=== PATIENT | male | born 1975 | race Caucasian/White ===

== ENCOUNTER 2019-09-17 07:41 | Day surgery (SDC) | payer OTHER, BC ==
[~2019-09-17] VITALS: Ht 180.3 cm; Wt 95.5 kg
[~2019-09-17 07:41] MED LIST: AMOCLA875 PO; CRUTCH4 USE; HYDACE5 PO; HYDR1TAB94 PO; IBUP400 PO; NAPR500 PO
--- NOTE | 2019-09-17 09:10 | NUR ---
Ambulatory in Day Surgery Surgical site prepped with 2% Chlorhexidine cloth wipe. History, Chart, Medications and Allergies reviewed before start of procedure.Lungs clear T/O to Auscultation. Patient confirms NPO status and agrees with scheduled surgery. Patient States Post-Procedure ride home has been arranged.WEDDING RING REMOVED AND GIVEN TO . VSS
--- NOTE | 2019-09-17 09:14 | NUR ---
PT C/O OF NAUSEA AND LIGHT HEADNESS IMMEDIATELY FOLLOWING IV INSERTION. PT LAID FLAT AND COOL AIR APPLIED. PT STATED NAUSEA RESOLVED.
--- NOTE | 2019-09-17 14:18 | NUR ---
Patient up to Ambulate STAND BY ASSIST. Gait steady. Discharge instructions reviewed with patient. Patient verbalizes understanding. Copy given to patient to take home. DRESSING LEFT GROIN CDI. Discharged via wheelchair to private car for ride home WITH SPOUSE.
--- NOTE | 2019-09-18 09:41 | NUR ---
09/18/19 0941 Maye Espino VERIFICATIONS: EDIT CHART.
== END 2019-09-17 23:03 | disposition home or self-care (01) ==
LOC: ORSCMMR 07:41 → ORD 09:30 → ORSCMMR 09:30
PROVIDERS: Surgery
PROC: 0YU60JZ Supplement Left Inguinal Region with Synthetic Substitute, Open Approach (ICD-10-PCS; principal; 2019-09-17 09:30)
DX: K40.90 Unilateral inguinal hernia, without obstruction or gangrene, not specified as recurrent (principal)
CPT/HCPCS: A9270-GY; C1781; J0690; J1100; J1885; J2250; J2405; J2704; J3010; J7120

== ENCOUNTER 2024-03-24 15:31 | Emergency (ER) | payer OTHER ==
[~2024-03-24] VITALS: Ht 177.8 cm; Wt 95.2 kg
[2024-03-24] MEDS ORDERED: Ondansetron HCl 2 MG / ML 2ML Vial IV ONE (16:50)
[2024-03-24] MEDS ORDERED: HYDROmorphone HCl/Pf 1MG SYR IV ONE ×2 (16:50→20:00)
[2024-03-24] MEDS ORDERED: Morphine Sulfate 4 MG/1 ML Injection IV ONE ×2 (17:00→17:20)
[2024-03-24] MEDS ORDERED: Propofol 10mg/ml 20 ml Vial (Procedural) IV SCH (18:50)
[2024-03-24] MEDS ORDERED: NS 1,000 ML IV ONE (20:34)
[2024-03-24] MEDS ORDERED: RX Prepack 6 Tabs Oxycodone 5mg UD ONE (21:10)
[2024-03-24] MEDS ORDERED: Percocet 5-3251 EACH PO (21:12)
[2024-03-24 21:28] VITALS: BP 125/91
== END 2024-03-24 22:27 | disposition home or self-care (01) ==
LOC: ER 15:31
DX: S52.572A Other intraarticular fracture of lower end of left radius, initial encounter for closed fracture (principal); S42.352A Displaced comminuted fracture of shaft of humerus, left arm, initial encounter for closed fracture; W17.89XA Other fall from one level to another, initial encounter
CPT/HCPCS: 24505; 25605; 73060; 73090; 73200; 76377; 96361-59; 96374-59; 96375-59; 96376-59; 99152; 99153; 99285-25; A9270; J1170; J2270; J2405; J2704; J7030

== ENCOUNTER 2024-04-02 09:31 | Day surgery (SDC) | payer OTHER ==
[~2024-04-02] VITALS: Ht 180.3 cm; Wt 92.9 kg
[~2024-04-02 09:31] MED LIST changes: +Dexamethasone Sod Phos 10 MG/ML 1ML VIAL ONE; +EPINEPhrine HCl 1 MG/ML 1ML Amp ONE; +FentaNYL Citrate 50 MCG/ML 2 ML Injection ONE; +Lidocaine HCl 4% 5 ML SDA ONE; +Midazolam HCl 1MG / ML 2ML Vial ONE; +Ondansetron HCl 2 MG / ML 2ML Vial ONE; +Percocet 5-3251 EACH PO; +Rocuronium Bromide 10 MG/ML 5ML Injection IV ONE; +Ropivacaine 0.5% HCL/PF 5 MG/ML 30ML Vial ONE; +propofoL 20 ML IV ONE
[2024-04-02] MEDS ORDERED: HYDROCODONE-AC1 EA19 PO (09:52)
[2024-04-02] MEDS ORDERED: OMEP20ER PO (09:52)
--- NOTE | 2024-04-02 10:00 | NUR ---
04/02/24 Janae Jean LEXX AT BEDSIDE
[2024-04-02] MEDS ORDERED: Lactated Ringer's 1,000 ML IV ONE ×2 (10:10→10:13)
[2024-04-02] MEDS ORDERED: Tranexamic Acid 100 ML IV ONE (10:13)
[2024-04-02] MEDS ORDERED: CeFAZolin Sodium 2,000 MG VIAL ONE (10:18)
[2024-04-02] MEDS ORDERED: EPINEPhrine HCl 1 MG/ML 1ML Amp XX ONE (11:20)
[2024-04-02] MEDS ORDERED: Ondansetron HCl 2 MG / ML 2ML Vial ONE (15:00)
--- NOTE | 2024-04-02 15:29 | NUR ---
04/02/24 1529 Mirna Stanton PT UP TO RECLINER AT 1512. PT HAVING DIFFICULTY WITH WAKING UP, STILL GROGGY. PT'S FAMILY MEMBERS AT HIS RECLINER SIDE. PT C/O NAUSEA, IV ZOFRAN GIVEN SLOWLY. PT ABLE TO ANSWER QUESTIONS APPROPRIATELY. PT TOLERATING ICE WATER. EMESIS BAG ON TABLE. PT'S L ARM ELEVATED BY PILLOW, PT'S ARM IS IN A BLACK SLING. DRESSING C/D/I. WILL GO OVER PT EDUCATION. ANTONIO, SEBASTIAN.
[2024-04-02] MEDS ORDERED: OxyCODONE 5 mg/Acetamin 325 mg TABLET ONE (15:55)
[2024-04-02 16:11] VITALS: BP 120/77
== END 2024-04-02 16:23 | disposition home or self-care (01) ==
LOC: ORSCSDS 09:31 → ORSC 16:23 → ORSCSDS 16:23 → ORSC 16:24 → ORSCSDS 16:24 → ORSC 16:25 → ORSCSDS 16:25
PROVIDERS: Orthopaedic Surgery
PROC: 0PSG04Z Reposition Left Humeral Shaft with Internal Fixation Device, Open Approach (ICD-10-PCS; principal; 2024-04-02 10:45)
PROC: 0PSJ04Z Reposition Left Radius with Internal Fixation Device, Open Approach (ICD-10-PCS; principal; 2024-04-02 10:45)
DX: S42.302A Unspecified fracture of shaft of humerus, left arm, initial encounter for closed fracture (principal); S52.572B Other intraarticular fracture of lower end of left radius, initial encounter for open fracture type I or II
CPT/HCPCS: A9270; C1713; J0171; J0690; J1100; J2001; J2250; J2405; J2704; J2795; J3010; J7120

== ENCOUNTER 2024-07-30 07:16 | Day surgery (SDC) | payer OTHER ==
[~2024-07-30] VITALS: Ht 180.3 cm; Wt 93.8 kg
[~2024-07-30 07:16] MED LIST changes: -Dexamethasone Sod Phos 10 MG/ML 1ML VIAL ONE; -EPINEPhrine HCl 1 MG/ML 1ML Amp ONE; -FentaNYL Citrate 50 MCG/ML 2 ML Injection ONE; +HYDROCODONE-AC1 EA19 PO; -Lidocaine HCl 4% 5 ML SDA ONE; -Midazolam HCl 1MG / ML 2ML Vial ONE; +OMEP20ER PO; +OMEPRAZOLE PO; -Ondansetron HCl 2 MG / ML 2ML Vial ONE; -Rocuronium Bromide 10 MG/ML 5ML Injection IV ONE; -Ropivacaine 0.5% HCL/PF 5 MG/ML 30ML Vial ONE; -propofoL 20 ML IV ONE
[2024-07-30] MEDS ORDERED: NS 500 ML IV ONE (07:29)
[2024-07-30] MEDS ORDERED: CeFAZolin Sodium 2,000 MG VIAL ONE (07:31)
[2024-07-30] MEDS ORDERED: NS 50 ML IV ONE (07:31)
[2024-07-30] MEDS ORDERED: IBUP600 PO (07:40)
[2024-07-30] MEDS ORDERED: Midazolam HCl 1MG / ML 2ML Vial ONE ×2 (07:59→09:00)
[2024-07-30] MEDS ORDERED: FentaNYL Citrate 50 MCG/ML 2 ML Injection ONE (09:05)
--- NOTE | 2024-07-30 09:14 | NUR ---
07/30/24 0913 MARLYS LICEA T/O FOR LOCAL LEFT HAND BLOCK O850 BLOCK STARTED 0834
[2024-07-30] MEDS ORDERED: propofoL 20 ML IV ONE (09:16)
[2024-07-30 09:57] VITALS: BP 126/89
--- NOTE | 2024-07-30 09:59 | NUR ---
07/30/24 0959 Bettie Yoo FEELS IRRITATED. "NO PAIN. LIKE A REALLY GOOD BEE STING." HX SHOULDER PAIN, GOING TO PT FOR THIS. PT. ALSO HAD NECK PAIN COMING IN STATES "NOT SO BAD RIGHT NOW."
== END 2024-07-30 10:45 | disposition home or self-care (01) ==
LOC: ORSCSDS 07:16
PROVIDERS: Orthopaedic Surgery
PROC: 01N50ZZ Release Median Nerve, Open Approach (ICD-10-PCS; principal; 2024-07-30 09:00)
DX: G56.02 Carpal tunnel syndrome, left upper limb (principal); K21.9 Gastro-esophageal reflux disease without esophagitis
CPT/HCPCS: J0690; J2250; J2704; J3010